=== PATIENT | female | born 1995 | race Caucasian/White ===

== ENCOUNTER 2017-01-24 18:42 | Emergency (ER) | payer SELFPAY ==
[2017-01-24 21:20] VITALS: BP 120/65
== END 2017-01-24 21:20 | disposition home or self-care (01) ==
LOC: ED 18:42
DX: S93.492A Sprain of other ligament of left ankle, initial encounter (principal); X50.9XXA Other and unspecified overexertion or strenuous movements or postures, initial encounter; Y93.89 Activity, other specified; Y99.8 Other external cause status; Y92.89 Other specified places as the place of occurrence of the external cause

== ENCOUNTER 2017-12-14 02:57 | Emergency (ER) | payer SELFPAY ==
[~2017-12-14] VITALS: Ht 160 cm; Wt 76.7 kg
[2017-12-14 04:55] VITALS: BP 124/62
== END 2017-12-14 04:55 | disposition home or self-care (01) ==
LOC: ED 02:57
DX: S51.811A Laceration without foreign body of right forearm, initial encounter (principal); W20.8XXA Other cause of strike by thrown, projected or falling object, initial encounter; Y93.89 Activity, other specified; Y92.89 Other specified places as the place of occurrence of the external cause; Y99.8 Other external cause status
CPT/HCPCS: 90715

== ENCOUNTER 2018-07-13 22:31 | Emergency (ER) | payer SELFPAY ==
[~2018-07-13] VITALS: Ht 160 cm; Wt 72.6 kg
[2018-07-13 22:37] VITALS: Ht 160 cm; Wt 72.6 kg
[2018-07-14 05:13] VITALS: BP 106/58
== END 2018-07-14 05:13 | disposition home or self-care (01) ==
LOC: ED 22:31
DX: R51 Headache (principal); R11.2 Nausea with vomiting, unspecified; R19.7 Diarrhea, unspecified; Z98.890 Other specified postprocedural states
CPT/HCPCS: J0780; J1200; J1885; J7030